=== PATIENT | male | born 1955 | race Hispanic/Latino ===

== ENCOUNTER 2017-06-11 21:42 | Emergency (ER) | payer SELFPAY ==
[2017-06-11] MEDS ORDERED: ACETAMINOPHEN EXTRA STRENGTH 500 MG TABLET ONE (22:23)
[2017-06-11 22:37] LABS: BASOPHILS % (AUTO) 0.6 % (0.0-5.0); HEMATOCRIT 37.5 % (42-54); LYMPHOCYTES % (AUTO) 19.2 % (21.0-51.0); MEAN CORPUSCULAR HEMOGLOBIN 32.3 pg (27.0-33.0); MEAN CORPUSCULAR HGB CONC 35.2 g/dL (32.0-36.0); MONOCYTES % (AUTO) 8.2 % (3.0-13.0); NUCLEATED RED BLOOD CELLS 0.1 % (0.0-0.19); PLATELET COUNT (AUTO) 179 K/uL (130-400); RED BLOOD CELL COUNT(AUTO) 4.08 MIL/uL (4.50-6.20); RED CELL DISTRIBUTION WIDTH 13.6 % (11.0-15.5); WHITE BLOOD COUNT (AUTO) 4.6 K/uL (4.8-10.8)
[2017-06-11 22:53] LABS: POTASSIUM 3.9 mmol/L (3.5-5.1)
[2017-06-11 22:58] LABS: ALBUMIN 3.3 g/dL (3.5-5.0); BILIRUBIN,TOTAL 0.4 mg/dL (0.2-1.0); TOTAL PROTEIN, SERUM 7.3 g/dL (6.0-8.3)
[2017-06-11] MEDS ORDERED: DEXAMETHASONE SOD PHOSPHATE 10MG/ML 1ML VIAL ONE (23:33)
[2017-06-12] MEDS ORDERED: ALBUTEROL SULFATE 0.083% 2.5 MG/3 ML INH IH ONE (02:04)
== END 2017-06-11 23:47 | disposition home or self-care (01) ==
LOC: EDH 21:42
DX: B34.9 Viral infection, unspecified (principal); J32.9 Chronic sinusitis, unspecified; E78.5 Hyperlipidemia, unspecified
CPT/HCPCS: 36415; 80053; 83605; 85025; 87804 ×2; 96372; 99284; J1100

== ENCOUNTER 2017-11-03 20:35 | Emergency (ER) | payer OTHER ==
[2017-11-03] MEDS ORDERED: ACETAMINOPHEN 325 MG TAB ONE (21:12)
== END 2017-11-03 22:32 | disposition left against medical advice (07) ==
LOC: EDH 20:35
DX: S13.4XXA Sprain of ligaments of cervical spine, initial encounter (principal); M62.830 Muscle spasm of back; E78.5 Hyperlipidemia, unspecified; M54.5 Low back pain; V59.49XA Driver of pick-up truck or van injured in collision with other motor vehicles in traffic accident, initial encounter; Y93.89 Activity, other specified; Y92.410 Unspecified street and highway as the place of occurrence of the external cause; Y99.8 Other external cause status
CPT/HCPCS: 72040; 72100

== ENCOUNTER 2018-06-10 17:09 | Emergency (ER) | payer OTHER ==
[2018-06-10 17:29] LABS: APPEARANCE,URINE Clear (CLEAR); BILIRUBIN,URINE Negative (NEGATIVE); COLOR,URINE Yellow (YELLOW); GLUCOSE, URINE (UA) Negative (NEGATIVE); KETONES,URINE Negative (NEGATIVE); LEUKOCYTE ESTERASE ,URINE Negative (NEGATIVE); NITRATE,URINE Negative (NEGATIVE); OCCULT BLOOD,URINE Negative (NEGATIVE); PROTEIN,URINE Negative (NEGATIVE); UROBILINOGEN,URINE 0.2 mg/dL (0.2-1.0)
[2018-06-10 17:35] LABS: BASOPHILS % (AUTO) 0.5 % (0.0-5.0); EOSINOPHILS % (AUTO) 2.6 % (0.0-8.0); HEMATOCRIT 41.8 % (42-54); LYMPHOCYTES % (AUTO) 32.7 % (21.0-51.0); MEAN CORPUSCULAR HGB CONC 34.1 g/dL (32.0-36.0); MEAN CORPUSCULAR VOLUME 93.9 fL (79-99); MONOCYTES % (AUTO) 11.8 % (3.0-13.0); NEUTROPHILS % (AUTO) 52.4 % (40.0-77.0); NUCLEATED RED BLOOD CELLS 0.1 % (0.0-0.19); PLATELET COUNT (AUTO) 216 K/uL (130-400); RED BLOOD CELL COUNT(AUTO) 4.45 MIL/uL (4.50-6.20); RED CELL DISTRIBUTION WIDTH 13.2 % (11.0-15.5); WHITE BLOOD COUNT (AUTO) 6.4 K/uL (4.8-10.8)
[2018-06-10 17:44] LABS: CREATININE 0.9 mg/dL (0.5-1.5); POTASSIUM 3.5 mmol/L (3.5-5.1)
[2018-06-10] MEDS ORDERED: KETOROLAC TROMETHAMINE 15MG/ML ONE (17:51)
[2018-06-10 18:30] LABS: INR 1.01 (0.85-1.15); PARTIAL THROMBOPLASTIN TIME 28.9 SEC (26.3-35.5); PROTHROMBIN TIME 10.6 SEC (9.6-11.6)
[2018-06-10 18:40] LABS: ALANINE AMINOTRANSFERASE 23 U/L (12-78); ASPARTATE AMINOTRANSFERASE 26 U/L (10-37); BILIRUBIN,DIRECT < 0.1 mg/dL (0.0-0.3); BILIRUBIN,TOTAL 0.2 mg/dL (0.2-1.0); TOTAL PROTEIN, SERUM 8.1 g/dL (6.0-8.3)
== END 2018-06-10 19:49 | disposition home or self-care (01) ==
LOC: EDH 17:09
DX: N43.3 Hydrocele, unspecified (principal); E78.5 Hyperlipidemia, unspecified; Z87.891 Personal history of nicotine dependence
CPT/HCPCS: 36415; 74177; 76870; 80048; 80076; 81003; 85025; 85610; 85730; 87088; 96374; 99284; J1885

== ENCOUNTER → 2018-06-10 | Outpatient (CLI) | payer OTHER ==
[2018-06-10 08:29] LABS: BASOPHILS % (AUTO) 0.7 % (0.0-5.0); EOSINOPHILS % (AUTO) 2.9 % (0.0-8.0); LYMPHOCYTES % (AUTO) 33.5 % (21.0-51.0); MEAN CORPUSCULAR HEMOGLOBIN 31.9 pg (27.0-33.0); MEAN CORPUSCULAR HGB CONC 33.6 g/dL (32.0-36.0); MONOCYTES % (AUTO) 10.4 % (3.0-13.0); NEUTROPHILS % (AUTO) 52.5 % (40.0-77.0); PLATELET COUNT (AUTO) 210 K/uL (130-400); RED BLOOD CELL COUNT(AUTO) 4.42 MIL/uL (4.50-6.20); RED CELL DISTRIBUTION WIDTH 13.1 % (11.0-15.5); WHITE BLOOD COUNT (AUTO) 5.6 K/uL (4.8-10.8)
[2018-06-10 08:48] LABS: CREATININE 0.9 mg/dL (0.5-1.5); POTASSIUM 4.2 mmol/L (3.5-5.1)
== END | disposition home or self-care (01) ==
LOC: LAB 08:05
PROVIDERS: ATTEND Urology
DX: C61 Malignant neoplasm of prostate (principal)
CPT/HCPCS: 36415; 80048; 85025

== ENCOUNTER → 2018-06-11 | Outpatient (CLI) | payer OTHER | END | disposition home or self-care (01) | LOC: RAH 12:31 | PROVIDERS: ATTEND Urology | DX: C61 Malignant neoplasm of prostate (principal) | CPT/HCPCS: 78306; A9503 ==

== ENCOUNTER → 2018-06-14 | Outpatient (CLI) | payer OTHER | END | disposition home or self-care (01) | LOC: RAH 08:11 | PROVIDERS: ATTEND Urology | DX: N28.1 Cyst of kidney, acquired (principal); N20.0 Calculus of kidney; K57.90 Diverticulosis of intestine, part unspecified, without perforation or abscess without bleeding; C61 Malignant neoplasm of prostate; M47.815 Spondylosis without myelopathy or radiculopathy, thoracolumbar region | CPT/HCPCS: 74178 ==

== ENCOUNTER 2018-09-07 20:31 | Emergency (ER) | payer OTHER ==
[2018-09-07 21:25] LABS: EOSINOPHILS % (AUTO) 9.7 % (0.0-8.0); HEMATOCRIT 33.9 % (42-54); LYMPHOCYTES % (AUTO) 12.1 % (21.0-51.0); MEAN CORPUSCULAR HEMOGLOBIN 31.9 pg (27.0-33.0); MONOCYTES % (AUTO) 12.1 % (3.0-13.0); NEUTROPHILS % (AUTO) 65.1 % (40.0-77.0); PLATELET COUNT (AUTO) 379 K/uL (130-400); RED CELL DISTRIBUTION WIDTH 14.1 % (11.0-15.5); WHITE BLOOD COUNT (AUTO) 4.1 K/uL (4.8-10.8)
[2018-09-07 21:30] LABS: APPEARANCE,URINE Clear (CLEAR); BILIRUBIN,URINE Negative (NEGATIVE); COLOR,URINE Yellow (YELLOW); GLUCOSE, URINE (UA) Negative (NEGATIVE); KETONES,URINE Negative (NEGATIVE); LEUKOCYTE ESTERASE ,URINE Negative (NEGATIVE); NITRATE,URINE Negative (NEGATIVE); OCCULT BLOOD,URINE Negative (NEGATIVE); PROTEIN,URINE Negative (NEGATIVE); UROBILINOGEN,URINE 0.2 mg/dL (0.2-1.0)
[2018-09-07 21:32] LABS: CREATININE 0.8 mg/dL (0.5-1.5); POTASSIUM 3.5 mmol/L (3.5-5.1)
[2018-09-07 21:36] LABS: INR 0.99 (0.85-1.15); PARTIAL THROMBOPLASTIN TIME 32.9 SEC (26.3-35.5); PROTHROMBIN TIME 10.4 SEC (9.6-11.6)
[2018-09-07 21:51] LABS: ALBUMIN 3.2 g/dL (3.5-5.0); BILIRUBIN,TOTAL 0.2 mg/dL (0.2-1.0); TOTAL PROTEIN, SERUM 8.1 g/dL (6.0-8.3)
[2018-09-07 21:59] LABS: B-TYPE NATRIURETIC PEPTIDE 13 pg/mL (0-100)
[2018-09-07] MEDS ORDERED: KETOROLAC TROMETHAMINE 30MG/ML ONE (23:32)
[2018-09-07] MEDS ORDERED: DIAZEPAM 5 MG TABLET ONE (23:32)
== END 2018-09-08 00:09 | disposition home or self-care (01) ==
LOC: EDH 20:31
DX: M54.5 Low back pain (principal); E78.5 Hyperlipidemia, unspecified; E11.9 Type 2 diabetes mellitus without complications; Z85.46 Personal history of malignant neoplasm of prostate
CPT/HCPCS: 36415; 71045; 74176; 80053; 81003; 82550; 83874; 83880; 84484; 85025; 85610; 85730; 93005; 96374; 99285; J1885

== ENCOUNTER 2019-03-17 15:58 | Emergency (ER) | payer OTHER ==
[2019-03-17] MEDS ORDERED: ACETAMINOPHEN 325 MG TAB ONE (16:31)
[2019-03-17] MEDS ORDERED: SODIUM CHLORIDE 0.9% 1000ML 1,000 ML IV ONE (16:32)
[2019-03-17 16:53] LABS: BASOPHILS % (AUTO) 0.2 % (0.0-5.0); EOSINOPHILS % (AUTO) 0.7 % (0.0-8.0); HEMATOCRIT 38.6 % (42-54); LYMPHOCYTES % (AUTO) 7.9 % (21.0-51.0); MEAN CORPUSCULAR HGB CONC 34.5 g/dL (32.0-36.0); MEAN CORPUSCULAR VOLUME 95.7 fL (79-99); MONOCYTES % (AUTO) 9.9 % (3.0-13.0); NEUTROPHILS % (AUTO) 81.3 % (40.0-77.0); PLATELET COUNT (AUTO) 200 K/uL (130-400); RED BLOOD CELL COUNT(AUTO) 4.04 MIL/uL (4.50-6.20); RED CELL DISTRIBUTION WIDTH 13.8 % (11.0-15.5); WHITE BLOOD COUNT (AUTO) 7.2 K/uL (4.8-10.8)
[2019-03-17 17:06] LABS: CARBON DIOXIDE 24 mmol/L (21-32); CHLORIDE 103 mmol/L (101-111); CREATININE 0.8 mg/dL (0.5-1.5); GLOMERULAR FILTR. RATE CALC 103 mL/min (>60); GLUCOSE,RANDOM 104 mg/dL (70-105); POTASSIUM 3.5 mmol/L (3.5-5.1); SODIUM SERUM 135 mmol/L (136-145); UREA NITROGEN, BLOOD 17 mg/dL (7-18)
[2019-03-17 17:12] LABS: ALANINE AMINOTRANSFERASE 15 U/L (12-78); ALBUMIN 3.8 g/dL (3.5-5.0); ASPARTATE AMINOTRANSFERASE 18 U/L (10-37); BILIRUBIN,TOTAL 0.4 mg/dL (0.2-1.0); TOTAL PROTEIN, SERUM 7.4 g/dL (6.0-8.3)
[2019-03-17 17:37] LABS: B-TYPE NATRIURETIC PEPTIDE < 5 pg/mL (0-100)
[2019-03-17 18:28] LABS: APPEARANCE,URINE Clear (CLEAR); BILIRUBIN,URINE Negative (NEGATIVE); COLOR,URINE Yellow (YELLOW); GLUCOSE, URINE (UA) Negative (NEGATIVE); KETONES,URINE Negative (NEGATIVE); LEUKOCYTE ESTERASE ,URINE Negative (NEGATIVE); NITRATE,URINE Negative (NEGATIVE); OCCULT BLOOD,URINE Negative (NEGATIVE); PROTEIN,URINE Negative (NEGATIVE); UROBILINOGEN,URINE 0.2 mg/dL (0.2-1.0)
== END 2019-03-17 19:41 | disposition home or self-care (01) ==
LOC: EDH 15:58
DX: R51 Headache (principal); R11.2 Nausea with vomiting, unspecified; E11.9 Type 2 diabetes mellitus without complications; E78.5 Hyperlipidemia, unspecified; Z90.49 Acquired absence of other specified parts of digestive tract
CPT/HCPCS: 36415; 70450; 72125; 80053; 81003; 83605; 83880; 84484; 85025; 93005; 96360; 96361; 99285; J7030

== ENCOUNTER 2021-02-16 19:59 | Emergency (ER) | payer OTHER ==
[~2021-02-16] VITALS: Ht 170.2 cm; Wt 63.5 kg
[2021-02-16 20:07] VITALS: BP 144/72
[2021-02-16] MEDS ORDERED: KETOROLAC 30MG VIAL (30MG/ML) IM STA (20:25)
[2021-02-16] MEDS ORDERED: KETOROLAC 30MG VIAL (30MG/ML) ONE (20:31)
[2021-02-16] MEDS ORDERED: MELO-106 PO (20:52)
== END 2021-02-16 21:03 | disposition home or self-care (01) ==
LOC: EDH 19:59
DX: M25.561 Pain in right knee (principal); E78.00 Pure hypercholesterolemia, unspecified; I10 Essential (primary) hypertension; Z79.1 Long term (current) use of non-steroidal anti-inflammatories (NSAID); Z90.49 Acquired absence of other specified parts of digestive tract
CPT/HCPCS: 73562; 96372; 99283; J1885

== ENCOUNTER → 2023-07-11 | Outpatient (CLI) | payer OTHER ==
[~2023-07-11] MED LIST: ASPI-1005 PO
== END | disposition home or self-care (01) ==
LOC: RAH 13:42
PROVIDERS: ATTEND Internal Medicine
DX: G31.89 Other specified degenerative diseases of nervous system (principal); R29.818 Other symptoms and signs involving the nervous system; H81.10 Benign paroxysmal vertigo, unspecified ear
CPT/HCPCS: 70551